=== PATIENT | female | born 1980 | race Caucasian/White ===

== ENCOUNTER 2024-10-27 23:18 | Observation (INO) | payer OTHER ==
--- NOTE | 2024-10-27 23:41 | ED ---
Chest Pain HPI - General Chief Complaint: Chest Pain Stated Complaint: Chest pain Time Seen by Provider: 10/27/24 23:21 Source: patient, EMS, RN notes reviewed Mode of arrival: EMS Limitations: no limitations - History of Present Illness Initial Comments: Emergency department complaint of chest pain. Patient states pain started earlier today she states left-sided rating up to her neck and left arm. She was given aspirin nitro states initially helped. Patient states she has pain she does have a history of hypertension and diabetes states she is currently at [facility] since last week for crack use. Patient has had leg pain no leg swelling denies any prior cardiac stents - Related Data Allergies Allergy/AdvReac Type Severity Reaction Status Date / Time clonazepam Allergy Confusion Verified 10/28/24 00:18 gabapentin Allergy Anaphylaxis Verified 10/28/24 00:18 promethazine [From Phenergan] Allergy Vomiting Verified 10/28/24 00:18 trazodone Allergy Hallucinati Verified 10/28/24 00:18 ons venlafaxine [From Effexor] Allergy Rash/Hives Verified 10/28/24 00:18 Review of Systems ROS Statement: Those systems with pertinent positive or pertinent negative responses have been documented in the HPI. ROS Other: All systems not noted in ROS Statement are negative. EKG Findings - EKG Comments: EKG Findings:: EKG performed at 23: 44 sinus rhythm rate of 94 AL 172 QRS 84 QT/QTc 44/[address] elevation depression noted. - EKG Results: EKG: interpreted by ARELY Past Medical History Past Medical History: Hypertension History of Any Multi-Drug Resistant Organisms: None Reported Past Psychological History: ADD/ADHD, Anxiety, Bipolar, Depression, PTSD Smoking Status: Current every day smoker Past Drug Use History: Cocaine General Exam Limitations: no limitations General appearance: alert, in no apparent distress Head exam: Present: atraumatic, normocephalic, normal inspection Eye exam: Present: normal appearance, PERRL, EOMI. Absent: scleral icterus, conjunctival injection, periorbital swelling ENT exam: Present: normal exam, normal oropharynx, mucous membranes moist Neck exam: Present: normal inspection, full ROM. Absent: tenderness, meningismus, lymphadenopathy Respiratory exam: Present: normal lung sounds bilaterally. Absent: respiratory distress, wheezes, rales, rhonchi, stridor Cardiovascular Exam: Present: regular rate, normal rhythm, normal heart sounds. Absent: systolic murmur, diastolic murmur, rubs, gallop, clicks Neurological exam: Present: alert, oriented X3, CN II-XII intact, reflexes no rmal. Absent: motor sensory deficit Skin exam: Present: warm, dry, intact, normal color. Absent: rash Course Vital Signs 10/27/24 23:33 Temperature 97.9 F Pulse Rate 96 Respiratory 18 Rate Blood Pressure 117/79 O2 Sat by Pulse 96 Oximetry Chest Pain MDM - MDM Was pt. sent in by a medical professional or institution (, PA, TRAVELING ACCOUNTANT, urgent care, hospital, or custodial...) When possible be specific @ -[place] Did you speak to anyone other than the patient for history (EMS, parent, family, police, friend...)? What history was obtained from this source @ -No Did you review nursing and triage notes (agree or disagree)? Why? @ -I reviewed and agree with nursing and triage notes Were old charts reviewed (outside hosp., previous admission, EMS record, old EKG, old radiological studies, urgent care reports/EKG's, custodial records)? Report findings @ -No old charts were reviewed Differential Diagnosis (chest pain, altered mental status, abdominal pain women, abdominal pain men, vaginal bleeding, weakness, fever, dyspnea, syncope, headac he, dizziness, GI bleed, back pain, seizure, CVA, palpatations, mental health, musculoskeletal)? @ -Differential Chest Pain: Stable Angina, Unstable Angina, STEMI, NSTEMI Aortic Dissection, Pneumothorax, Musculoskeletal, Esophageal Spasm GERD, Cholecystitis, Pancreatitis, Zoster, this is not meant to be an all-inclusive list. EKG interpreted by me (3pts min.). @ -As above X-rays interpreted by me (1pt min.). @ -Chest x-ray shows no acute cardiopulmonary process. CT interpreted by me (1pt min.). @ -None done U/S interpreted by me (1pt. min.). @ -None done What testing was considered but not performed or refused? (CT, X-rays, U/S, labs)? Why? @ -None What meds were considered but not given or refused? Why? @ -None Did you discuss the management of the patient with other professionals (pro fessionals i.e. , PA, TRAVELING ACCOUNTANT, lab, RT, psych nurse, geriatric social worker, replanter, teacher, consumer safety officer, case consultant)? Give summary @ -[facility] for admission Was smoking cessation discussed for >3mins.? @ -No Was critical care preformed (if so, how long)? @ -No Were there social determinants of health that impacted care today? How? (Homelessness, low income, unemployed, alcoholism, drug addiction, transport ation, low edu. Level, literacy, decrease access to med. care, [facility], rehab)? @ -No Was there de-escalation of care discussed even if they declined (Discuss DNR or withdrawal of care, Hospice)? DNR status @ -No What co-morbidities impacted this encounter? (DM, HTN, Smoking, COPD, CAD, Cancer, CVA, ARF, Chemo, Hep., AIDS, mental health diagnosis, sleep apnea, morbid obesity)? @ -Drug abuse, hypertension Was patient admitted / discharged? Hospital course, mention meds given and route, prescriptions, significant lab abnormalities, going to OR and other pertinent info. @ -Admitted patient presented for chest pain patient has multiple risk factors concerning ACSb symptoms patient did receive aspirin nitro. Patient will be admitted for cardiac rule out Undiagnosed new problem with uncertain prognosis? @ -No Drug Therapy requiring intensive monitoring for toxicity (Heparin, Nitro, Insulin, Cardizem)? @ -No Were any procedures done? @ -No Diagnosis/symptom? @ -[Chest pain Acute, or Chronic, or Acute on Chronic? @ -Acute Uncomplicated (without systemic symptoms) or Complicated (systemic symptoms)? @ -Complicated Side effects of treatment? @ -No Exacerbation, Progression, or Severe Exacerbation? @ -No Poses a threat to life or bodily function? How? (Chest pain, [place], PR, pneumonia, PE, COPD, DKA, ARF, appy, cholecystitis, CVA, Diverticulitis, Homicidal, Suicidal, threat to staff... and all critical care pts) @ -[Yes possible ACS causing risk of cardiac function Disposition Clinical Impression: Chest pain Disposition: ADMITTED IP TO THIS [facility] Condition: Fair Referrals: Nonstaff,Physician [Primary Care Provider] - 1-2 days Time of Disposition: 01:22
[2024-10-27 23:57] LABS: Basophils # (A) 0.03 10*3/uL (0.00-0.10); Basophils % (A) 0.4 %; Eosinophils # (A) 0.13 10*3/uL (0.04-0.35); Eosinophils % (A) 1.6 %; HCT 34.9 % (37.2-46.3); HGB 11.8 g/dL (12.0-15.0); Lymphocytes # (A) 2.32 10*3/uL (0.90-5.00); Lymphocytes % (A) 28.2 %; MCH 31.8 pg (27.0-32.0); MCHC 33.8 g/dL (32.0-37.0); MCV 94.1 fL (80.0-97.0); Monocytes # (A) 0.89 10*3/uL (0.20-1.00); Monocytes % (A) 10.8 %; Neutrophils # (A) 4.83 10*3/uL (1.80-7.70); Neutrophils % (A) 58.5 %; Platelet Count 303 10*3/uL (140-440); RBC 3.71 10*6/uL (4.10-5.20); RDW 11.9 % (11.5-14.5); WBC 8.24 10*3/uL (4.50-10.00)
[2024-10-28 00:16] LABS: INR 0.9 (<1.2); Partial Thromboplastin Time 25.3 sec (22.0-30.0); Prothrombin Time 10.2 sec (10.0-12.5)
[2024-10-28] MEDS: ONDANSETRON 4 MG/2 ML VIAL IVP STA (00:18)
[2024-10-28] MEDS: KETOROLAC 15 MG/ML 1 ML VIAL IVP STA (00:18)
[2024-10-28] MEDS: SODIUM CHLORIDE 0.9% 1,000 ML IV STA (00:19)
[2024-10-28 00:24] LABS: ALT 25 U/L (4-34); AST 30 U/L (14-36); African American GFR (CKD) >90 (>60 ml/min/1.73 sqM); Albumin 3.5 g/dL (3.5-5.0); Alkaline Phosphatase 53 U/L (38-126); Anion Gap 10 mmol/L; Blood Urea Nitrogen 16 mg/dL (7-17); Calcium 9.4 mg/dL (8.4-10.2); Carbon Dioxide 25 mmol/L (22-30); Chloride 99 mmol/L (98-107); Glucose 230 mg/dL (74-99); Magnesium 1.4 mg/dL (1.6-2.3); Non-African American GFR(CKD) >90 (>60 ml/min/1.73 sqM); Potassium 4.2 mmol/L (3.5-5.1); Sodium 134 mmol/L (137-145); Total Protein 5.6 g/dL (6.3-8.2)
--- NOTE | 2024-10-28 00:59 | XR ---
EXAM: XR Chest, 2 Views CLINICAL HISTORY: ITS.REASON XR Reason: Chest Pain TECHNIQUE: Frontal and lateral views of the chest. COMPARISON: No relevant prior studies available. FINDINGS: Lungs: Unremarkable. No consolidation. Pleural space: Unremarkable. No pneumothorax. Heart: Unremarkable. No cardiomegaly. Mediastinum: Unremarkable. Bones/joints: Unremarkable. IMPRESSION: No consolidation.
[2024-10-28] MEDS ORDERED: NITROGLYCERIN SL TABS 0.4 MG TAB SUBLINGUAL PRN (01:22)
[2024-10-28 09:05] LABS: HCT 39.2 % (37.2-46.3); HGB 13.1 g/dL (12.0-15.0); MCH 31.7 pg (27.0-32.0); MCHC 33.4 g/dL (32.0-37.0); MCV 94.9 fL (80.0-97.0); Platelet Count 318 10*3/uL (140-440); RBC 4.13 10*6/uL (4.10-5.20); RDW 12.4 % (11.5-14.5); WBC 8.29 10*3/uL (4.50-10.00)
[2024-10-28 09:11] VITALS: BP 149/93; PULSE 89; RESP 17; TEMP 98.6
[2024-10-28] MEDS: ESCITALOPRAM 20 MG TAB PO SCH (09:22)
[2024-10-28] MEDS: LOSARTAN 50 MG TAB PO SCH (09:22)
[2024-10-28 09:27] LABS: African American GFR (CKD) >90 (>60 ml/min/1.73 sqM); Anion Gap 9 mmol/L; Blood Urea Nitrogen 12 mg/dL (7-17); Calcium 9.2 mg/dL (8.4-10.2); Carbon Dioxide 22 mmol/L (22-30); Chloride 107 mmol/L (98-107); Glucose 168 mg/dL (74-99); Non-African American GFR(CKD) >90 (>60 ml/min/1.73 sqM); Potassium 4.7 mmol/L (3.5-5.1); Sodium 138 mmol/L (137-145)
--- NOTE | 2024-10-28 09:45 | P.CRDCN ---
History of Present Illness Consult date: 10/28/24 Consult reason: chest pain History of present illness: This is a 44-year-old female with past medical history of hypertension, diabetes, crack cocaine use. Patient comes from [place] with complaints of upper lateral chest and left arm. She had taken aspirin which did help with some relief of the pain. No lower extremity edema. Blood pressure 147/97, heart rate 88, pulse ox 96% on room air. Patient is status post 1 L of IV fluid bolus, Zofran and Toradol. -EKG: Sinus rhythm with no acute ST-T wave changes. -Chest x-ray: No consolidation. -Laboratory studies: Troponin negative x 3. WBC 8.2, hemoglobin 9.8, creatinine 0.39. Magnesium 1.4. -Home cardiac medications: Clonidine 0.1-0.3 mg every 4 hours as needed, losartan 50 mg daily. Review Of Systems: At the time of my exam: CONSTITUTIONAL: Denies fever or chills. HEENT: Denies blurred vision, vision changes, or eye pain. Denies hemoptysis CARDIOVASCULAR: Denies chest pain. Denies orthopnea. Denies PND. Denies palpitations RESPIRATORY: Denies shortness of breath. GASTROINTESTINAL: Denies abdominal pain. Denies nausea or vomiting. HEMATOLOGIC: Denies bleeding disorders. GENITOURINARY: Denies any blood in urine. SKIN: Denies puritis. Denies rash. Physical examination: Gen: This is a 44-year-old female in no acute distress. VS: reviewed HEENT: Head is atraumatic, normocephalic. Pupils equal, round. Sclerae is anicteric. NECK: Supple. No JVD. LUNGS: Clear to auscultation. No wheezes or rhonchi. No intercostal retractions. HEART: Regular rate and rhythm. No murmur. Positive chest wall tenderness. ABDOMEN: Soft No tenderness. EXTREMITIES: No pedal edema. No calf tenderness. NEUROLOGICAL: Patient is awake, alert and oriented x3. Assessment: Atypical chest pain, acute coronary syndrome ruled out, chest pain related to muscular skeletal pain Hypertension Diabetes Crack cocaine use Plan: Patient to receive losartan this morning. If blood pressure remains elevated, losartan may be increased as needed. Obtain 2-D echocardiogram and Doppler study to assess cardiac structure and function If echocardiogram is unremarkable, patient is cleared for discharge. Thank you kindly for this consultation. Nurse practitioner note has been reviewed, I agree with documented findings and plan of care. Patient was seen and examined. Past Medical History Past Medical History: Hypertension History of Any Multi-Drug Resistant Organisms: None Reported Past Psychological History: ADD/ADHD, Anxiety, Bipolar, Depression, PTSD Smoking Status: Current every day smoker Past Drug Use History: Cocaine Medications and Allergies Home Medications Medication Instructions Recorded Confirmed Type Acetaminophen [Tylenol] 650 mg PO Q6H PRN MDD 4 doses 10/28/24 10/28/24 History Aspirin 325 mg PO ONCE 10/28/24 10/28/24 History Calcium Phos/D3/Magnesium/Zinc 1 tab PO TID PRN 10/28/24 10/28/24 History [Mcwgwcb-Fpn-Enpq-Vitamin D3] Escitalopram [Lexapro] 20 mg PO DAILY 10/28/24 10/28/24 History Insulin Glargine (Lantus) [Lantus 26 unit SQ HS 10/28/24 10/28/24 History Vial] Insulin Regular, Human [NovoLIN R] See Protocol SQ AC-TID 10/28/24 10/28/24 History Losartan [Cozaar] 50 mg PO DAILY 10/28/24 10/28/24 History Melatonin 10 mg PO HS 10/28/24 10/28/24 History cloNIDine HCL [Catapres] 0.1 - 0.3 mg PO Q4H PRN 10/28/24 10/28/24 History lamoTRIgine [LaMICtal Xr] 50 mg PO DAILY 10/28/24 10/28/24 History lamoTRIgine [LaMICtal Xr] 100 mg PO HS 10/28/24 10/28/24 History ondansetron HCL [Zofran] 8 mg PO Q6H PRN 10/28/24 10/28/24 History Allergies Allergy/AdvReac Type Severity Reaction Status Date / Time gabapentin Allergy Anaphylaxis Verified 10/28/24 07:02 venlafaxine [From Effexor] Allergy Rash/Hives Verified 10/28/24 07:02 clonazepam AdvReac Confusion Verified 10/28/24 07:03 promethazine [From Phenergan] AdvReac Vomiting Verified 10/28/24 07:03 trazodone AdvReac Hallucinati Verified 10/28/24 07:03 ons Physical Exam Vitals: Vital Signs Temp Pulse Resp BP Pulse Ox 10/28/24 06:13 88 18 147/97 96 10/28/24 04:36 94 16 145/79 97 10/27/24 23:33 97.9 F 96 18 117/79 96 Intake and Output 10/27/24 10/28/24 10/28/24 22:59 06:59 14:59 Other: Weight 78.925 kg Results 10/28/24 08:47 10/28/24 08:47 Cardiac Enzymes 10/27/24 10/27/24 10/28/24 Range/Units 23:42 23:42 02:38 AST 30 (14-36) U/L Troponin I <0.012 <0.012 (0.000-0.034) ng/mL 10/28/24 Range/Units 06:12 AST (14-36) U/L Troponin I <0.012 (0.000-0.034) ng/mL Coagulation 10/27/24 Range/Units 23:42 PT 10.2 (10.0-12.5) sec APTT 25.3 (22.0-30.0) sec CBC 10/27/24 Range/Units 23:42 WBC 8.24 (4.50-10.00) 10*3/uL RBC 3.71 L (4.10-5.20) 10*6/uL Hgb 11.8 L (12.0-15.0) g/dL Hct 34.9 L (37.2-46.3) % Plt Count 303 (140-440) 10*3/uL Comprehensive Metabolic Panel 10/27/24 Range/Units 23:42 Sodium 134 L (137-145) mmol/L Potassium 4.2 (3.5-5.1) mmol/L Chloride 99 (98-107) mmol/L Carbon Dioxide 25 (22-30) mmol/L BUN 16 (7-17) mg/dL Creatinine 0.39 L (0.52-1.04) mg/dL Glucose 230 H (74-99) mg/dL Calcium 9.4 (8.4-10.2) mg/dL AST 30 (14-36) U/L ALT 25 (4-34) U/L Alkaline Phosphatase 53 (38-126) U/L Total Protein 5.6 L (6.3-8.2) g/dL Albumin 3.5 (3.5-5.0) g/dL Current Medications Generic Name Dose Route Start Last Admin Trade Name Freq PRN Reason Stop Dose Admin Aspirin 325 mg 10/29/24 09:00 Aspirin 325 Mg Tab PO DAILY SUKUMAR Nitroglycerin 0.4 mg 10/28/24 01:22 Nitroglycerin Sl Tabs 0.4 Mg Tab SUBLINGUAL Q5M PRN Chest Pain Intake and Output 10/27/24 10/28/24 10/28/24 22:59 06:59 14:59 Other: Weight 78.925 kg 10/27/24 23:42 10/27/24 23:42
--- NOTE | 2024-10-28 10:39 | CA ---
Transthoracic Echo Report Name: Jeana Guzman Age: 44 Gender: F : 1980 Exam Date: 10/28/2024 07:58 Exam Location: [facility] Ht (in): 59 Wt (lb): 174 Ordering Physician: Vinod Gross Attending/Referring Phys: [id number], Ginny Senior Technical Support Analyst Jessica Maldonado, JORGE Procedure CPT: Indications: Chest Pain Cardiac Hx: Technical Quality: Good Contrast 1: Total Dose (mL): Contrast 2: Total Dose (mL): MEASUREMENTS (Male / Female) Normal Values 2D ECHO LV Diastolic Diameter PLAX 4.0 cm 4.2 - 5.9 / 3.9 - 5.3 cm LV Systolic Diameter PLAX 2.7 cm IVS Diastolic Thickness 1.0 cm 0.6 - 1.0 / 0.6 - 0.9 cm LVPW Diastolic Thickness 0.8 cm 0.6 - 1.0 / 0.6 - 0.9 cm LV Relative Wall Thickness 0.4 RV Internal Dim ED PLAX 2.2 cm LVOT Diameter 1.5 cm LA Systolic Diameter LX 3.8 cm 3.0 - 4.0 / 2.7 - 3.8 cm LV Diastolic Volume MOD BP 56.6 cm??? 67 - 155 / 56 - 104 cm??? LV Systolic Volume MOD BP 13.4 cm??? 22 - 58 / 19 - 49 cm??? LV Ejection Fraction MOD BP 76.3 % >= 55 % LV Cardiac Index MOD BP 2076.0 cm???/min???m??? LV Diastolic Volume MOD 4C 60.0 cm??? LV Systolic Volume MOD 4C 17.6 cm??? LV Ejection Fraction MOD 4C 70.7 % LV Cardiac Index MOD 4C 2036.9 cm???/min???m??? LV Diastolic Length 4C 7.5 cm LV Systolic Length 4C 6.2 cm LV Diastolic Volume MOD 2C 51.1 cm??? LV Systolic Volume MOD 2C 9.3 cm??? LV Ejection Fraction MOD 2C 81.9 % LV Cardiac Index MOD 2C 2010.3 cm???/min???m??? LV Diastolic Length 2C 7.0 cm LV Systolic Length 2C 5.6 cm M-MODE Aortic Root Diameter MM 2.5 cm LA Systolic Diameter MM 4.0 cm LA Ao Ratio MM 1.6 AV Cusp Separation MM 1.8 cm DOPPLER AV Peak Velocity 125.0 cm/s AV Peak Gradient 6.3 mmHg AV Mean Velocity 88.6 cm/s AV Mean Gradient 3.4 mmHg AV Velocity Time Integral 24.5 cm LVOT Peak Velocity 109.4 cm/s LVOT Peak Gradient 4.8 mmHg LVOT Velocity Time Integral 19.2 cm LVOT Stroke Volume 33.0 cm??? LVOT Stroke Volume Index 19.0 ml/m??? LVOT Cardiac Index 1584.9 cm???/min???m??? AV Area Cont Eq vti 1.3 cm??? AV Area Cont Eq pk 1.5 cm??? Mitral E Point Velocity 103.4 cm/s Mitral A Point Velocity 101.2 cm/s Mitral E to A Ratio 1.0 MV Deceleration Time 241.4 ms MV E' Velocity 4.9 cm/s Mitral E to MV E' Ratio 21.0 TR Peak Velocity 242.2 cm/s TR Peak Gradient 23.5 mmHg PV Peak Velocity 163.5 cm/s PV Peak Gradient 10.7 mmHg FINDINGS Left Ventricle Left ventricular ejection fraction is estimated at 60-65%. Normal left ventricular systolic function with no obvious regional wall motion abnormalities. Left ventricular cavity size normal. Left ventricular wall thickness normal. Right Ventricle Normal right ventricular size and function. Right ventricular systolic pressure within normal limits. Right Atrium Normal right atrial size. Left Atrium Normal left atrial size. Mitral Valve Structurally normal mitral valve. Mild mitral regurgitation. No mitral stenosis. Aortic Valve Trileaflet aortic valve. No aortic valve stenosis or regurgitation. Tricuspid Valve Structurally normal tricuspid valve. Trace to mild tricuspid regurgitation. Pulmonic Valve Structurally normal pulmonic valve. No pulmonic stenosis. Trace pulmonic regurgitation. Pericardium No pericardial or pleural effusion. Aorta Normal size aortic root and proximal ascending aorta. CONCLUSIONS Diagnosis: Chest pain Preserved LV size and function ejection fraction greater than 60% Prominent pericardial stripe. No pericardial effusion Previewed by: Dr. Enrike Molina MD (Electronically Signed) Final Date: 28 October 2024 10:38
[2024-10-28] MEDS: ACETAMINOPHEN TAB 325 MG TAB PO PRN (11:10)
[2024-10-28 11:35] LABS: Glucose,Whole Blood 162 mg/dL (70-110)
[2024-10-28] MEDS: INSULIN LISPRO (HumaLOG) 100 UNIT/ML 10 mL VL SQ SCH (12:07)
--- NOTE | 2024-10-28 13:18 | P.HPIM ---
History of Present Illness H&P Date: 10/28/24 Chief Complaint: Chest pain History of present illness; 44-year-old female with a past medical history of hypertension and diabetes presents with complaints of chest pain. States the pain started earlier yesterday with left-sided chest pain that radiated up to her neck and left arm. States the pain was a he has had at that time, she was at rest while this happened. States nothing like this is ever happened to her before. Denies any family history of cardiac issues. Reports she was given as pirin and nitro which initially helped with the pain. Of note patient is currently at [facility] rehabbing from crack cocaine use, states she has detox before going to [facility] approximately a week ago. Labs: WBC 8.24, hemoglobin 11.8, platelets 303, neutrophils 4.83, PT 10.2, INR 0.9, APTT 25.3, sodium 134, potassium 4.2, BUN 16, creatinine 0.39, glucose 230, magnesium 1.4, troponin less than 0.012 x 3. Imaging: - EKG done in the ER showed heart rate of 94 bpm showing sinus rhythm with possible left atrial enlargement and QTc of 395. - ER CXR: No acute cardiopulmonary process REVIEW OF SYSTEMS: As stated above in HPI. The rest of the 14-point review of systems is negative. PHYSICAL EXAMINATION: GENERAL: The patient is alert and oriented x3, not in any acute distress. Well developed, well nourished. HEENT: Pupils are round and equally reacting to light. EOMI. No scleral icterus. No conjunctival pallor. Normocephalic, atraumatic. CARDIOVASCULAR: S1 and S2 present. No murmurs, rubs, or gallops. PULMONARY: Chest is clear to auscultation b/l, no wheezing or crackles. ABDOMEN: Soft, nontender, nondistended, normoactive bowel sounds. No palpable organomegaly. MUSCULOSKELETAL: No joint swelling or deformity. EXTREMITIES: No cyanosis, clubbing, or pedal edema. NEUROLOGICAL: Gross neurological examination did not reveal any focal deficits. SKIN: No rashes. Assessment and Plan #Atypical chest pain: - Initial workup with EKG, troponin, and chest x-ray show are negative for potential ACS - Cardiology on consult appreciate further recommendations - TSH, lipid panel, A1c ordered - Resume home cardiac medications - Echo ordered, pending results - Per cardiology note if echocardiogram is unremarkable patient is cleared for discharge from cardiology standpoint - Continue telemetry #Type 2 diabetes: - Hold home medication - Sliding scale #Benign essential hypertension: - Resume home losartan F: None E: None N: N.p.o. DVT ppx: SCDs GI ppx: None CODE STATUS: Full code Dispo: Pending clinical course Alena Hamilton MD PGY-2 FM Dictation was produced using [employer] dictation software. please excuse any grammatical, word or spelling errors. Past Medical History Past Medical History: Hypertension History of Any Multi-Drug Resistant Organisms: None Reported Past Psychological History: ADD/ADHD, Anxiety, Bipolar, Depression, PTSD Smoking Status: Current every day smoker Past Drug Use History: Cocaine Medications and Allergies Home Medications Medication Instructions Recorded Confirmed Type Acetaminophen [Tylenol] 650 mg PO Q6H PRN MDD 4 doses 10/28/24 10/28/24 History Aspirin 325 mg PO ONCE 10/28/24 10/28/24 History Calcium Phos/D3/Magnesium/Zinc 1 tab PO TID PRN 10/28/24 10/28/24 History [Tjlnaiu-Svw-Tagm-Vitamin D3] Escitalopram [Lexapro] 20 mg PO DAILY 10/28/24 10/28/24 History Insulin Glargine (Lantus) [Lantus 26 unit SQ HS 10/28/24 10/28/24 History Vial] Insulin Regular, Human [NovoLIN R] See Protocol SQ AC-TID 10/28/24 10/28/24 History Losartan [Cozaar] 50 mg PO DAILY 10/28/24 10/28/24 History Melatonin 10 mg PO HS 10/28/24 10/28/24 History cloNIDine HCL [Catapres] 0.1 - 0.3 mg PO Q4H PRN 10/28/24 10/28/24 History lamoTRIgine [LaMICtal Xr] 50 mg PO DAILY 10/28/24 10/28/24 History lamoTRIgine [LaMICtal Xr] 100 mg PO HS 10/28/24 10/28/24 History ondansetron HCL [Zofran] 8 mg PO Q6H PRN 10/28/24 10/28/24 History Allergies Allergy/AdvReac Type Severity Reaction Status Date / Time gabapentin Allergy Anaphylaxis Verified 10/28/24 07:02 venlafaxine [From Effexor] Allergy Rash/Hives Verified 10/28/24 07:02 clonazepam AdvReac Confusion Verified 10/28/24 07:03 promethazine [From Phenergan] AdvReac Vomiting Verified 10/28/24 07:03 trazodone AdvReac Hallucinati Verified 10/28/24 07:03 ons Physical Exam Vitals: Vital Signs Temp Pulse Resp BP Pulse Ox 10/28/24 06:13 88 18 147/97 96 10/28/24 04:36 94 16 145/79 97 10/27/24 23:33 97.9 F 96 18 117/79 96 Intake and Output 10/27/24 10/28/24 10/28/24 22:59 06:59 14:59 Other: Weight 78.925 kg Results CBC & Chem 7: 10/28/24 08:47 10/28/24 08:47 Labs: Abnormal Lab Results - Last 24 Hours (Table) 10/27/24 10/27/24 Range/Units 23:42 23:42 RBC 3.71 L (4.10-5.20) 10*6/uL Hgb 11.8 L (12.0-15.0) g/dL Hct 34.9 L (37.2-46.3) % MPV 9.2 L (9.5-12.2) fL Sodium 134 L (137-145) mmol/L Creatinine 0.39 L (0.52-1.04) mg/dL Glucose 230 H (74-99) mg/dL Magnesium 1.4 L (1.6-2.3) mg/dL Total Protein 5.6 L (6.3-8.2) g/dL
--- NOTE | 2024-10-28 15:20 | P.DS ---
Providers Date of admission: 10/28/24 01:23 Attending physician: Mary Waters Consults: 10/28/24 01:22 Consult Physician Urgent Consulting Provider: Diego Ortiz Consult Reason/Comments: Chest pain Do you want consulting provider notified?: Yes Primary care physician: Physician Nonstaff Hospital Course: Discharge Diagnosis: Atypical chest pain, acute coronary syndrome ruled out, chest pain related to muscular skeletal pain Hypertension Diabetes Crack cocaine use Hospital Course: History of present illness; 44-year-old female with a past medical history of hypertension and diabetes presents with complaints of chest pain. States the pain started earlier yesterday with left-sided chest pain that radiated up to her neck and left arm. States the pain was a he has had at that time, she was at rest while this happened. States nothing like this is ever happened to her before. Denies any family history of cardiac issues. Reports she was given aspirin and nitro which initially helped with the pain. Of note patient is currently at [facility] rehabbing from crack cocaine use, states she has detox before going to [facility] approximately a week ago. While in the ER lab work was significant for WBC 8.24, hemoglobin 11.8, platelets 303, neutrophils 4.83, PT 10.2, INR 0.9, APTT 25.3, sodium 134, potassium 4.2, BUN 16, creatinine 0.39, glucose 230, magnesium 1.4, troponin less than 0.012 x 3. Imaging in the ER significant for EKG which showed heart rate of 94 bpm showing sinus rhythm with possible left atrial enlargement and QTc of 395 and CXR showed no acute cardiopulmonary process. While admitted the pt was seen by cardiology, underwent echo which showed ef of greater than 60%, preserved LV size and function, prominent pericardial stripe and no pericardial effusion. After a within normal limits echo cardiology cleared the patient from a cardiac standpoint. On final day of her hospital stay pertinent lab work included WBC 8.29, hemoglobin 13.1, platelet count 318, sodium 138, potassium 4.7, BUN 12, creatinine 0.38. At time of discharge patient was hemodynamically stable, no longer complaining of chest pain. Patient was advised to follow-up with her PCP and business planning manager as an outpatient. Patient is discharged to back to [facility] rehab facility. Pt seen and examined at bedside: No current complaints or concerns, denies any current chest pain or shortness of breath. Vital signs reveiwed and stable: General: non toxic, no distress, appears at stated age, normal weight Head: atraumatic, normocephalic, symmetric Eyes: EOMI, no lid lag, anicteric sclera, pupils equal round reactive to light ENT: Nose and ears atraumatic Neck: No cervical lymphadenopathy, trachea midline, supple Mouth: no lip lesion, mucus membranes moist Cardiovascular: S1S2 reg, no murmur, positive dorsalis pedis pulse bilateral, no edema Lungs: Decreased air entry bilaterally, no rhonchi, no rales, no accessory muscle use Abdominal: soft, nontender to palpation, no guarding Ext: muscle strength 5 out of 5 in all 4 extremities grossly, no gross muscle atrophy, no contractures Psych: Alert, oriented, appropriate affect A total of greater than 30 minutes were spent preparing this complex discarge summary. Patient was discharged on 10/28/2024. Patient Condition at Discharge: Fair Plan - Discharge Summary New Discharge Prescriptions: Continue Insulin Glargine (Lantus) [Lantus Vial] 26 unit SQ HS ondansetron HCL [Zofran] 8 mg PO Q6H PRN PRN Reason: Nausea Acetaminophen [Tylenol] 650 mg PO Q6H PRN MDD 4 doses PRN Reason: Pain Or Fever > 100.5 Melatonin 10 mg PO HS cloNIDine HCL [Catapres] 0.1 - 0.3 mg PO Q4H PRN PRN Reason: BP >160/100 Losartan [Cozaar] 50 mg PO DAILY Aspirin 325 mg PO ONCE lamoTRIgine [LaMICtal Xr] 100 mg PO HS lamoTRIgine [LaMICtal Xr] 50 mg PO DAILY Escitalopram [Lexapro] 20 mg PO DAILY Insulin Regular, Human [NovoLIN R] See Protocol SQ AC-TID Calcium Phos/D3/Magnesium/Zinc [Iwfnzun-Bjg-Hlsz-Vitamin D3] 1 tab PO TID PRN PRN Reason: cramps Discharge Medication List Acetaminophen [Tylenol] 650 mg PO Q6H PRN MDD 4 doses 10/28/24 [History] Aspirin 325 mg PO ONCE 10/28/24 [History] Calcium Phos/D3/Magnesium/Zinc [Xjpkwnc-Axh-Sger-Vitamin D3] 1 tab PO TID PRN 10/28/24 [History] Escitalopram [Lexapro] 20 mg PO DAILY 10/28/24 [History] Insulin Glargine (Lantus) [Lantus Vial] 26 unit SQ HS 10/28/24 [History] Insulin Regular, Human [NovoLIN R] See Protocol SQ AC-TID 10/28/24 [History] Losartan [Cozaar] 50 mg PO DAILY 10/28/24 [History] Melatonin 10 mg PO HS 10/28/24 [History] cloNIDine HCL [Catapres] 0.1 - 0.3 mg PO Q4H PRN 10/28/24 [History] lamoTRIgine [LaMICtal Xr] 50 mg PO DAILY 10/28/24 [History] lamoTRIgine [LaMICtal Xr] 100 mg PO HS 10/28/24 [History] ondansetron HCL [Zofran] 8 mg PO Q6H PRN 10/28/24 [History] Follow up Appointment(s)/Referral(s): Nonstaff,Physician [Primary Care Provider] - 1-2 days Patient Instructions/Handouts: Chest Pain (DC) Discharge Disposition: OTHER INSTITUTION NOT DEFINED
[2024-10-28] MEDS ORDERED: MELATONIN 5 MG TABLET PO SCH (21:00)
[2024-10-29] MEDS ORDERED: ASPIRIN 325 MG TAB PO SCH (09:00)
== END 2024-10-28 15:17 | disposition other institution (70) ==
LOC: EC 23:18 → 6NMEDSUR 10-28 01:23 → 1SOBS 10-28 04:49
PROVIDERS: ADMIT Hospitalist; ATTEND Hospitalist
DX: R07.89 Other chest pain (principal); E11.9 Type 2 diabetes mellitus without complications; I10 Essential (primary) hypertension; F17.200 Nicotine dependence, unspecified, uncomplicated; F31.9 Bipolar disorder, unspecified; F41.9 Anxiety disorder, unspecified; Z79.4 Long term (current) use of insulin; Z79.899 Other long term (current) drug therapy; Z88.8 Allergy status to other drugs, medicaments and biological substances; Z79.82 Long term (current) use of aspirin
CPT/HCPCS: 96374; 96375; 99285; 36415; 93005; 93306; 80053; 80048; 84443; 83735; 84484 ×2; 85025; 85027; 85610; 85730; 83036; 71046; G0378; J2405; J1885